=== PATIENT | female | born 1960 | race Caucasian/White ===

== ENCOUNTER 2019-03-03 06:18 | Day surgery (SDC) | payer OTHER ==
[~2019-03-03] VITALS: Ht 152.4 cm; Wt 81.6 kg
[2019-03-03] MEDS ORDERED: BENA20TA PO (07:18)
[2019-03-03] MEDS ORDERED: LIDOCAINE 2% 100 MG/5 ML UJET TP ONE (07:40)
[2019-03-03] MEDS ORDERED: fentaNYL 0.05 MG/ML VIAL ONE (07:40)
[2019-03-03] MEDS ORDERED: fentaNYL 0.05 MG/ML VIAL IVP ONE (08:25)
== END 2019-03-03 08:50 | disposition home or self-care (01) ==
LOC: MDS 06:18 → MMU 06:19 → MDS 08:50
PROVIDERS: ATTEND Internal Medicine Gastroenterology
DX: D12.8 Benign neoplasm of rectum (principal); K57.30 Diverticulosis of large intestine without perforation or abscess without bleeding; I10 Essential (primary) hypertension; Z90.710 Acquired absence of both cervix and uterus; Z98.890 Other specified postprocedural states; Z85.43 Personal history of malignant neoplasm of ovary; Z79.899 Other long term (current) drug therapy
CPT/HCPCS: 45385; J3010